=== PATIENT | male | born 1945 | race Caucasian/White ===

== ENCOUNTER → 2017-01-23 | Outpatient (CLI) | payer MEDICARE ==
[~2017-01-23] MED LIST: ASPIRIN 81MG TA81 MG; CITRUCEL500 MG; LYSINE1000 MG; PRAVASTATIN 20M20 MG; TAMSULOSIN HYD0.4 M1
[2017-01-23 10:29] LABS: HEMOGLOBIN 14.3 g/dL (14.1-18.0); LYMPH # 2.1 K/mm3 (0.7-4.5); LYMPH % 33.2 % (10-50)
[2017-01-23 13:24] LABS: BUN 19 mg/dL (7-18); PROSTATE-SPECIFIC AG SCREEEN 0.8 ng/mL (0.0-4.0)
[2017-01-23 13:30] LABS: GFR (ESTIMATED) 74 ML/MIN (>60)
== END ==
LOC: LAB 10:13
PROVIDERS: Family Medicine
DX: C91.11 Chronic lymphocytic leukemia of B-cell type in remission (principal); E78.5 Hyperlipidemia, unspecified; N40.0 Benign prostatic hyperplasia without lower urinary tract symptoms; Z12.5 Encounter for screening for malignant neoplasm of prostate
CPT/HCPCS: G0103